=== PATIENT | male | born 1960 | race Caucasian/White ===

== ENCOUNTER 2016-12-17 10:26 | Day surgery (SDC) | payer OTHER ==
[~2016-12-17 10:26] MED LIST: BUPIVACAINE 0.5% (PRES FREE) 30 ML VIAL ONE; CEFAZOLIN SODIUM 1,000 MG VIAL ONE; FENTANYL 100 MCG/2 ML VIAL ONE; IV START KIT ONE; LACTATED RINGERS 1,000 ML ONE; LIDOCAINE 2% (PRES FREE) 5 ML VIAL ONE; MIDAZOLAM HCL 1 MG/ML 2ML VIAL ONE; PROPOFOL 20 ML IV ONE; SODIUM CHLORIDE 0.9% FLUSH 10 ML ONE
[2016-12-17] MEDS ORDERED: CEFAZOLIN SODIUM 2 GRAM PREMIX 100 ML IV PRN (10:45)
[2016-12-17] MEDS ORDERED: ONDANSETRON 4 MG/2ML 2 ML VIAL ONE (11:07)
[2016-12-17] MEDS ORDERED: DEXAMETHASONE SOD PHOS 4 MG/1 ML VIAL ONE (11:07)
[2016-12-17] MEDS ORDERED: PROPOFOL 20 ML IV ONE (11:07)
[2016-12-17] MEDS ORDERED: EPHEDRINE SULFATE UD SYR 25 MG 25 MG/5 ML SYRINGE IV ONE (11:14)
[2016-12-17] MEDS ORDERED: HYDROMORPHONE HCL 1 MG/ML SYRINGE IV PRN (11:38)
[2016-12-17] MEDS ORDERED: NALOXONE HCL 0.4 MG/ML VIAL IV PRN (11:38)
[2016-12-17] MEDS ORDERED: ATROPINE SULFATE 0.4 MG/1 ML VIAL IV PRN (11:38)
[2016-12-17] MEDS ORDERED: ONDANSETRON 4 MG/2ML 2 ML VIAL IV PRN ×2 (11:38→12:47)
[2016-12-17] MEDS ORDERED: PROMETHAZINE HCL 25 MG/ML VIAL IM PRN (11:38)
[2016-12-17] MEDS ORDERED: FENTANYL 100 MCG/2 ML VIAL IV PRN (11:38)
[2016-12-17] MEDS ORDERED: MEPERIDINE 25 MG/ML SYRINGE IV PRN (11:38)
[2016-12-17] MEDS ORDERED: LACTATED RINGERS 1,000 ML IV SCH (11:45)
--- NOTE | 2016-12-17 12:37 | OP ---
Binh Hu [id number] DATE: 12/17/2016 PREOPERATIVE DIAGNOSIS: Right inguinal hernia. POSTOPERATIVE DIAGNOSIS: Right inguinal hernia. PROCEDURE: Right inguinal hernia repair with mesh, plug, and patch. SURGEON: Kee Jaquez M.D. AWNING ASSEMBLER: Andreia. ANESTHESIA: [place], LMA general. INDICATION: This is a 56-year-old male who presents for elective right inguinal hernia repair. DESCRIPTION: With informed consent he was taken to the operating room where he was laid supine on the operating room table. General anesthesia was administered. The right groin was prepped and draped in the usual fashion. Local anesthetic was administered in the skin and subcutaneous tissue. Incision was made. Electrocautery was used to divide the subcutaneous fat and quincy's fascia. We dissected down to the external oblique. This was opened with a knife and Metzenbaum scissors in a fibrous splitting technique. Cord structures were encircled to the level of the pubic tubercle with a Maxie drain. The floor of the canal appeared intact. An indirect sac was identified within the cord structures, this was dissected free. There was some lipomatous fat that was excised to the internal ring as well. The sac was opened to facilitate dissection. The sac was ligated high with purse string of 2-0 Vicryl. Most of the sac was excised and it was allowed to reduce. There was a small defect into which a small mesh plus was placed, this was secured at multiple points with 2-0 Vicryl. A flat piece of mesh was then placed across the floor of the canal. The medial aspect overlapped the pubic tubercle. A slit was cut laterally and this was placed around the cord structures and secured laterally with 2-0 Vicryl. This was placed up beneath the external oblique. I did put one suture along the inferior shelving edge medially to hold the mesh in place. The wound was irrigated. We appeared to have adequate hemostasis. The external oblique was reapproximated with a running 2-0 Vicryl. Additional local anesthetic was administered. Quincy's fascia reapproximated with 3-0 Vicryl. The skin was closed with a running subcuticular 4-0 Monocryl. Mastisol and Steri-Strips were placed. Sterile dressings were applied. He tolerated the procedure and was taken to the recovery room in stable condition. Note was made that needle, instrument, and lap counts were reported as correct at the time closure. JOB: [id number] CC: Dr. Angel Sterling
[2016-12-17] MEDS ORDERED: OXYCODONE/ACETAMINOPHEN 5/325 MG TABLET PO PRN (12:47)
[2016-12-17] MEDS ORDERED: KETOROLAC TROMETHAMINE 30 MG/ML 1 ML VIAL IV PRN (12:47)
[2016-12-17] MEDS ORDERED: MORPHINE SULFATE 2 MG/ML SYRINGE IV PRN (12:47)
[2016-12-17] MEDS ORDERED: MORPHINE SULFATE 10 MG/ML SYRINGE IV PRN (13:02)
[2016-12-17] MEDS ORDERED: MORPHINE SULFATE 4 MG/ML SYRINGE IV PRN (13:02)
[2016-12-17] MEDS ORDERED: OXYCODONE/ACETAMINOPHEN 5/325 MG TABLET ONE (14:00)
== END 2016-12-17 14:35 | disposition home or self-care (01) ==
LOC: SDC 10:26
PROVIDERS: ATTEND Surgery
PROC: 0YU50JZ Supplement Right Inguinal Region with Synthetic Substitute, Open Approach (ICD-10-PCS; principal; 2016-12-17)
DX: K40.90 Unilateral inguinal hernia, without obstruction or gangrene, not specified as recurrent (principal); Z79.82 Long term (current) use of aspirin; F12.90 Cannabis use, unspecified, uncomplicated
CPT/HCPCS: 49505; J0690; J3010; J1100; A9270; J2250; J2405; J7120